=== PATIENT | female | born 2000 | race Caucasian/White ===

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

== ENCOUNTER → 2020-06-10 | Outpatient (CLI) | payer OTHER ==
[2020-06-10 09:47] LABS: CALCIUM 7.8 mg/dL (8.5-10.1); CREATININE 0.9 mg/dL (0.6-1.0); GFR 79.8; PHOSPHORUS 5.1 mg/dL (2.6-4.7); POTASSIUM 3.7 mmol/L (3.5-5.1)
== END ==
LOC: LAB 08:17
PROVIDERS: ATTEND Pediatrics Pediatric Endocrinology
DX: E20.8 Other hypoparathyroidism (principal)
CPT/HCPCS: 36415; 80048; 83735; 84100

== ENCOUNTER → 2020-07-06 | Outpatient (CLI) | payer OTHER ==
[2020-07-06 10:08] LABS: ALBUMIN 3.4 g/dL (3.4-5.0); ALBUMIN/GLOBULIN RATIO 0.7 (1.0-1.7); CALCIUM 8.1 mg/dL (8.5-10.1); CREATININE 0.9 mg/dL (0.6-1.0); GFR 79.8; PHOSPHORUS 5.2 mg/dL (2.6-4.7); POTASSIUM 3.8 mmol/L (3.5-5.1); TOTAL BILIRUBIN 0.6 mg/dL (0.2-1.0); TOTAL PROTEIN 8.5 g/dL (6.4-8.2)
[2020-07-06 15:00] LABS: FREE T4 1.41 ng/dL (0.76-1.46); THYROID STIM HORMONE (TSH) 3.39 uIU/mL (0.358-3.740)
[2020-07-07 05:11] LABS: CALCIUM PTH 8.4 mg/dL (8.7-10.2); CREATININE PTH 0.85 mg/dL (0.57-1.00); HEMOGLOBIN A1C 4.8 % (4.8-5.6); PTH INTACT <1 pg/mL (15-65)
== END ==
LOC: LAB 08:42
PROVIDERS: ATTEND Internal Medicine Endocrinology, Diabetes & Metabolism
DX: E20.9 Hypoparathyroidism, unspecified (principal)
CPT/HCPCS: 36415; 80053; 80061; 82306; 83036; 83735; 83970; 84100; 84439; 84443

== ENCOUNTER → 2021-01-15 | Outpatient (CLI) | payer OTHER ==
[2021-01-15 16:22] LABS: ALBUMIN 3.3 g/dL (3.4-5.0); CALCIUM 8.1 mg/dL (8.5-10.1); CREATININE 0.9 mg/dL (0.6-1.0); GFR 79.8; PHOSPHORUS 5.1 mg/dL (2.6-4.7); POTASSIUM 3.9 mmol/L (3.5-5.1)
== END ==
LOC: LAB 14:20
PROVIDERS: ATTEND Internal Medicine Endocrinology, Diabetes & Metabolism
DX: E20.9 Hypoparathyroidism, unspecified (principal)
CPT/HCPCS: 36415; 80069